=== PATIENT | female | born 1965 | race Caucasian/White ===

== ENCOUNTER 2018-07-21 07:45 | Emergency (ER) | payer OTHER ==
[2018-07-21 07:57] VITALS: BP 119/68
--- NOTE | 2018-07-21 08:08 | UC ---
Throat Pain/Nasal Bang HPI - HPI Summary HPI Summary: Started getting nasal congestion, elevated temp up to 100.2, cough, fatigue 4 days ago. Today has complete loss of voice, needs to interview a job candidate in 2 days. Lots of throat pain and difficulty swallowing. - History of Current Complaint Chief Complaint: UCGeneralIllness Stated Complaint: SORE THROAT,FEVER Time Seen by Provider: 07/21/18 07:58 Hx Obtained From: Patient Hx Last Menstrual Period: 07/01/18 ?: No Onset/Duration: Gradual Onset, Lasting Days Severity: Moderate Pain Intensity: 6 Cough: Productive Associated Signs & Symptoms: Positive: Hoarseness, Nasal Discharge, Fever - Allergies/Home Medications Allergies/Adverse Reactions: Allergies Allergy/AdvReac Type Severity Reaction Status Date / Time erythromycin base Allergy Rash Verified 07/21/18 07:49 PMH/Surg Hx/FS Hx/Imm Hx Other GI/ History: celiac - Surgical History Surgical History: None - Family History Known Family History: Positive: Hypertension - Social History Occupation: Employed Full-time Lives: With Family Alcohol Use: None Substance Use Type: None Smoking Status (MU): Never Smoked Tobacco Review of Systems All Other Systems Reviewed And Are Negative: Yes Constitutional: Positive: Negative Skin: Positive: Negative Eyes: Positive: Negative ENT: Positive: Sore Throat, Nasal Discharge Respiratory: Positive: Negative Cardiovascular: Positive: Negative Gastrointestinal: Positive: Negative Genitourinary: Positive: Negative Motor: Positive: Negative Neurovascular: Positive: Negative Musculoskeletal: Positive: Negative Neurological: Positive: Negative Psychological: Positive: Negative Is Patient Immunocompromised?: No Physical Exam Triage Information Reviewed: Yes Appearance: Well-Appearing, Well-Nourished Vital Signs: Initial Vital Signs Temp 98.8 F 07/21/18 07:50 Pulse 86 07/21/18 07:50 Resp 16 07/21/18 07:50 BP 119/68 07/21/18 07:50 Pulse Ox 98 07/21/18 07:50 Vital Signs Reviewed: Yes Eye Exam: Normal Eyes: Positive: Conjunctiva Clear ENT: Positive: Pharynx normal, Nasal congestion, TMs normal, Hoarse voice - full laryngitis -- can nly whisper Dental Exam: Normal Neck exam: Normal Neck: Positive: Supple, Nontender, No Lymphadenopathy Respiratory Exam: Normal Respiratory: Positive: Chest non-tender, Lungs clear, Normal breath sounds, No respiratory distress, No accessory muscle use Cardiovascular Exam: Normal Cardiovascular: Positive: RRR, No Murmur Musculoskeletal Exam: Normal Musculoskeletal: Positive: Strength Intact Neurological Exam: Normal Neurological: Positive: Alert Psychological Exam: Normal Skin Exam: Normal Throat Pain/Nasal Course/Dx - Differential Dx/Diagnosis Provider Diagnosis: Upper respiratory infection, viral, Laryngitis Discharge - Sign-Out/Discharge Documenting (check all that apply): Patient Departure All imaging exams completed and their final reports reviewed: No Studies - Discharge Plan Condition: Stable Disposition: HOME Prescriptions: predniSONE TAB* [Deltasone TAB*] 50 mg PO DAILY #2 tab Patient Education Materials: Upper Respiratory Infection (ED), Laryngitis (ED) Referrals: Rasheed Ahn MD [Primary Care Provider] - Additional Instructions: If your voice is not improving, take first dose of steroid tomorrow afternoon and the second one Monday morning. - Billing Disposition and Condition Condition: STABLE Disposition: Home
== END 2018-07-21 08:15 | disposition home or self-care (01) ==
LOC: UCEAST 07:45
DX: J06.9 Acute upper respiratory infection, unspecified (principal); J04.0 Acute laryngitis; Z88.1 Allergy status to other antibiotic agents
CPT/HCPCS: 87651; 99212; G0463